=== PATIENT | female | born 1990 | race Hispanic/Latino ===

== ENCOUNTER 2018-03-04 20:50 | Emergency (ER) | payer MEDICAID ==
[2018-03-04 21:19] VITALS: BP 143/82; PULSE 86; RESP 16; TEMP 98.6; O2SAT 97
[2018-03-04] MEDS ORDERED: Naproxen 500 MG TAB PO STA (21:29)
[2018-03-04] MEDS ORDERED: Tdap Vaccine 0.5 ml Vial (10-64 yrs) IM ONE ×2 (21:29→21:48)
[2018-03-04] MEDS ORDERED: Naproxen 500 MG TAB PO ONE (21:49)
--- NOTE | 2018-03-04 21:52 | ED PDOC ---
HPI: General Adult Time Seen by Provider: 03/04/18 21:20 Chief Complaint (Nursing): Abnormal Skin Integrity Chief Complaint (Provider): Cyst/Growth to upper extremity History Per: Patient History/Exam Limitations: no limitations Onset/Duration Of Symptoms: Days (past couple weeks) Have you had recent travel within the past 21 days to any of the following countries: [place], [place], [place] or [place]?: No Current Symptoms Are (Timing): Still Present Additional Complaint(s): 27 y/o female with a history of cysts and asthma presents to the ED with an abnormal skin growth to the upper left arm. Patient reports she first noticed it a few weeks ago. She states she has a history of getting cysts frequently. Patient reports needing them surgically removed in the past and recently had some taken from her scalp. She denies having this current cyst on her arm being evaluated. Patient took Motrin last night and Tylenol today with no relief. Denies any redness, swelling, or recent trauma to affected area. Last tetanus is unknown. LMP: November and is normally irregular. PMD: Dr. Horton Past Medical History Reviewed: Historical Data, Nursing Documentation, Vital Signs Vital Signs: Last Vital Signs Temp 98.6 F 03/04/18 21:16 Pulse 86 03/04/18 21:16 Resp 16 03/04/18 21:16 BP 143/82 03/04/18 21:16 Pulse Ox 97 03/04/18 22:07 - Medical History PMH: Asthma - Surgical History Surgical History: Cholecystectomy - Family History Family History: States: No Known Family Hx - Social History Current smoker - smoking cessation education provided: No Ex-Smoker (has not smoked in the last 12 months): No Alcohol: None Drugs: Denies - Immunization History Hx Tetanus Toxoid Vaccination: No - Home Medications Home Medications: Ambulatory Orders Medication Instructions Recorded Oxycodone HCl/Acetaminophen 1 tab PO Q6 PRN #10 tab 09/09/15 [Percocet 325 mg-5 mg] Sulfamethoxazole/Trimethopri 1 tab PO BID #14 tab 09/09/15 [Bactrim Ds 800 mg-160 mg] Dicyclomine [Bentyl] 20 mg PO QID PRN #10 tab 11/12/15 Ondansetron [Zofran Odt] 4 mg PO Q8H PRN #15 odt 11/12/15 Dicyclomine [Bentyl] 20 mg PO Q12 PRN #20 tab 03/02/16 Ondansetron ODT [Zofran ODT] 4 mg PO Q6 PRN #16 odt 03/02/16 Naproxen 500 mg PO BID #20 tab 03/04/18 - Allergies Allergies/Adverse Reactions: Allergies Allergy/AdvReac Type Severity Reaction Status Date / Time No Known Allergies Allergy Verified 11/12/15 16:48 Review of Systems ROS Statement: Except As Marked, All Systems Reviewed And Found Negative Constitutional: Negative for: Other (no trauma to upper left arm area) Skin: Positive for: Other (cyst to the upper left arm; denies redness or swelling to area) Physical Exam - Reviewed Nursing Documentation Reviewed: Yes Vital Signs Reviewed: Yes - Physical Exam Comments: GENERAL APPEARANCE: Patient is awake, alert, oriented x 3, in mild painful distress. Skin: 1.5 x 1.5 cm mobile cyst like mass to the lateral aspect of the proximal left upper arm, (-) erythema (-) ecchymosis (-) overlying skin changes Pulmonary: lungs clear, no rhonchi, no wheezing. Cardiac: regular rate and rhythm, no murmur, no gallop. Extremities: no deformity, full range of motion, no tendernes - ECG O2 Sat by Pulse Oximetry: 97 (RA) Pulse Ox Interpretation: Normal Medical Decision Making Medical Decision Making: Time: 21:16 Impression: Soft tissue mass likely cyst of upper left arm Plan: * Tetanus Shot * Naproxen 500 mg PO 2220 On re-evaluation, patient reports improvement of symptoms. On exam, patient remains AAOx3, in no acute distress. On exam, neck is supple, lungs CTA, cardiac RRR, abdomen is soft and non-tender, neuro exam shows no focal findings. VSS, stable for discharge. Diagnostic results d/w the patient in great detail. Dx of arm pain, epidermal cyst d/w the patient. Based on history, exam and diagnostic results plan will be for discharge and outpatient follow up. Advised to follow up with primary care physician in 1-2 days without fail. Advised to take medication as prescribed. Return to the emergency room at any time for any new or worsening symptoms. Patient states she fully agrees with and understands discharge instructions. States that she agrees with the plan and disposition. Verbalized and repeated discharge instructions and plan. I have given the patient opportunity to ask any additional questions. Scribe Attestation: Documented by Jeanmarie Velázquez acting as a scribe Aster Mark PA-C. Scribe Attestation: All medical record entries made by the Scribe were at my direction and personally dictated by me. I have reviewed the chart and agree that the record accurately reflects my personal performance of the history, physical exam, medical decision making, and the department course for this patient. I have also personally directed, reviewed, and agree with the discharge instructions and disposition Disposition - Clinical Impression Clinical Impression: Cyst, Upper arm pain - Patient ED Disposition Is Patient to be Admitted: No Counseled Patient/Family Regarding: Diagnosis, Need For Followup, Rx Given - Disposition Disposition: Routine/Home Disposition Time: 22:26 Condition: STABLE Additional Instructions: FOLLOW UP WITH DERMATOLOGY FOR FURTHER EVALUATION. RETURN TO ED WITH ANY NEW OR WORSENING SYMPTOMS. Prescriptions: Naproxen 500 mg PO BID #20 tab Instructions: Epidermal Cyst Forms: [employer] (Romansh) Print Language: PERSIAN - POA Present On Arrival: None
== END 2018-03-04 23:29 | disposition home or self-care (01) ==
LOC: H.ER 20:50
DX: L72.8 Other follicular cysts of the skin and subcutaneous tissue (principal); J45.909 Unspecified asthma, uncomplicated; Z23 Encounter for immunization